=== PATIENT | male | born 1985 | race Asian ===

== ENCOUNTER 2020-03-03 15:46 | Outpatient (REF) | payer BC, SELFPAY | END 2020-03-03 15:47 | disposition home or self-care (01) | LOC: HO.LAB 15:46 | PROVIDERS: PCP Internal Medicine; Visit Provider Internal Medicine | DX: Z20.828 Contact with and (suspected) exposure to other viral communicable diseases (principal) | CPT/HCPCS: C9803; U0003 ==

== ENCOUNTER 2020-08-24 18:30 | Outpatient (REF) | payer BC, SELFPAY | END 2020-08-24 18:31 | disposition home or self-care (01) | LOC: HO.LNP 18:30 | PROVIDERS: Visit Provider Family Medicine | DX: B34.9 Viral infection, unspecified (principal); Z20.822 Contact with and (suspected) exposure to COVID-19 | CPT/HCPCS: U0003; U0005 ==

== ENCOUNTER 2021-04-27 11:26 | Outpatient (REF) | payer BC, SELFPAY ==
[2021-05-05 09:36] LABS: Influenza A RNA Ref NOT DETECTED; Influenza B RNA Ref NOT DETECTED
[2021-05-05 10:00] LABS: SARS CoV2 RNA Ref DETECTED
== END 2021-04-27 11:27 | disposition home or self-care (01) ==
LOC: HO.LAB 11:26
PROVIDERS: Visit Provider Hospitalist
DX: Z20.822 Contact with and (suspected) exposure to COVID-19 (principal)
CPT/HCPCS: 0241U; 36415

== ENCOUNTER → 2021-10-18 09:11 | Outpatient (BNVA) | payer OTHER, SELFPAY | PROVIDERS: PCP Internal Medicine; Visit Provider Physician Assistant Medical | DX: S29.012A Strain of muscle and tendon of back wall of thorax, initial encounter (principal); S39.012A Strain of muscle, fascia and tendon of lower back, initial encounter; W03.XXXA Other fall on same level due to collision with another person, initial encounter | CPT/HCPCS: 99203 ==

== ENCOUNTER → 2021-10-27 11:47 | Outpatient (BNVA) | payer OTHER, SELFPAY | PROVIDERS: PCP Internal Medicine; Visit Provider Physician Assistant | DX: S29.012D Strain of muscle and tendon of back wall of thorax, subsequent encounter (principal); S39.012D Strain of muscle, fascia and tendon of lower back, subsequent encounter; W03.XXXD Other fall on same level due to collision with another person, subsequent encounter; M25.561 Pain in right knee | CPT/HCPCS: 72100; 99214 ==

== ENCOUNTER 2021-11-07 13:32 | Outpatient (REF) | payer OTHER, SELFPAY ==
--- NOTE | ~2021-11-07 | XR_ITS ---
EXAMINATION: XR ORBIT PRE-MRI SCREENING CLINICAL INFORMATION: Pre-MRI screening. COMPARISON: None TECHNIQUE: 3 views of the orbits were obtained. FINDINGS: No radiopaque, metallic foreign body. No acute osseous abnormality. XR/XR pre mri screening IMPRESSION: No metallic foreign body.
--- NOTE | ~2021-11-07 | MR_ITS ---
EXAMINATION: MR LUMBAR SPINE WITHOUT CONTRAST CLINICAL INFORMATION: Low back pain. Twisting injury. COMPARISON: Lumbar spine radiograph 10/27/2021. TECHNIQUE: MRI of the lumbar spine was obtained using routine sequences without contrast. FINDINGS: There is nonspecific straightening of the lumbar lordosis. Alignment is otherwise normal. Vertebral heights are preserved. There are small chronic Schmorl's nodes involving the upper and lower endplates at multiple consecutive levels at the thoracolumbar junction. There is slight loss of intervertebral disc height and T2 signal intensity at L5-S1 related to disc degeneration. The tip of the conus medullaris is located at L1-L2. No mass effect on the conus. Visualized distal cord signal intensity is normal. At L1-L2 there is a slightly bulging disc. No canal stenosis. No mass effect on the traversing or foraminal nerve roots. At L2-L3 there is a slightly bulging disc. No canal stenosis. No mass effect on the traversing or foraminal nerve roots. At L3-L4 there is a slightly bulging disc. Bilateral facet degenerative change. No canal stenosis. No mass effect on the traversing or foraminal nerve roots. At L4-L5 there is a slightly bulging disc. Bilateral facet degenerative change. No canal stenosis. No mass effect on the traversing or foraminal nerve roots. At L5-S1 there is a broad shallow central protrusion/extrusion causing indentation of the thecal sac. There is subtle displacement of both traversing S1 nerve roots. No foraminal nerve root compression. Limited visualization of the retroperitoneal anatomy reveals no abnormal finding. Psoas and paraspinal muscle groups are symmetric. MR/MR lumbar spine wo con IMPRESSION: There is a broad shallow central protrusion/extrusion at L5-S1 causing subtle displacement of both traversing S1 nerve roots. No mass effect on the traversing or foraminal nerve roots is visualized elsewhere within the [id number] of this examination. No canal stenosis.
== END 2021-11-07 13:33 | disposition home or self-care (01) ==
LOC: HO.MRI 13:32
PROVIDERS: Visit Provider Internal Medicine
DX: M54.50 Low back pain, unspecified (principal)
CPT/HCPCS: 72148

== ENCOUNTER → 2021-11-10 11:24 | Outpatient (BNVA) | payer OTHER, SELFPAY | PROVIDERS: PCP Internal Medicine; Visit Provider Physician Assistant | DX: S29.012D Strain of muscle and tendon of back wall of thorax, subsequent encounter (principal); S39.012D Strain of muscle, fascia and tendon of lower back, subsequent encounter; W03.XXXD Other fall on same level due to collision with another person, subsequent encounter | CPT/HCPCS: 99214 ==

== ENCOUNTER → 2021-11-23 11:09 | Outpatient (BNVA) | payer OTHER, SELFPAY | PROVIDERS: PCP Internal Medicine; Visit Provider Physician Assistant | DX: S29.012D Strain of muscle and tendon of back wall of thorax, subsequent encounter (principal); S39.012D Strain of muscle, fascia and tendon of lower back, subsequent encounter; W03.XXXD Other fall on same level due to collision with another person, subsequent encounter | CPT/HCPCS: 99213 ==

== ENCOUNTER → 2021-12-08 10:15 | Outpatient (BNVA) | payer OTHER, SELFPAY | PROVIDERS: PCP Internal Medicine; Visit Provider Physician Assistant | DX: M51.26 Other intervertebral disc displacement, lumbar region (principal); S29.012D Strain of muscle and tendon of back wall of thorax, subsequent encounter; S39.012D Strain of muscle, fascia and tendon of lower back, subsequent encounter; W03.XXXD Other fall on same level due to collision with another person, subsequent encounter | CPT/HCPCS: 99213 ==

== ENCOUNTER 2021-12-22 11:00 | Outpatient (RCR) | payer OTHER, SELFPAY ==
--- NOTE | 2021-10-30 12:05 | MHC.PT.EP ---
[facility] [place] Office [place] Office [place] Office [address] Tashia Souza [address] [phone] F: [phone] F: [phone] F: [phone] F: [phone] Physical Therapy Plan of Care Date of Evaluation: Date of Surgery: N/A Diagnosis: Thoracic and Lumbar Strain Assessment: Steffen is a 36 yo M referred to PT for thoracic and lumbar strain pain. Pain is intermittent in nature and comes on with sustained posture and movement. 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 His pain is mechanical in nature and comes on with sustained posture and movement. Upon exam he presents with slightly decreased gross hip and shoulder strength along with decreased abdominal strength, altered neuromuscular control of TrA and noted tissue tension. Steffen will benefit from skilled PT to address the aforementioned impairments and receive education on functional movements and body mechanics. Frequency and Duration: The patient will be seen 2/ week for 5 weeks Short Term Goals: Patient will demonstrate good TrA activation (without compensation) to increase stabilization throughout the day in 2 weeks. Patient will report 50% decrease in pain which will allow him to sleep without waking up during the night in 3 weeks. Plum Packer Goals: Patient will be I with HEP to encourage technician terminal and repeater pain management strategies and maintain level of function in 5 weeks. Patient will be able to stand for extended periods of time to allow him to return to work without pain. Patient will demonstrate an increase in muscle strength of lumbar stabs by 1 grade which will enable him to return to his hobbies without pain in 5 weeks. Treatment Plan: Modalities to reduce pain, spasms and effusion. Manual therapy to restore motion and function. Therapeutic exercise to improve strength and flexibility. Neuromuscular re-education for posture and balance. Therapeutic activities to return to functional activities of daily living. Electronically signed by: Shelia Cuevas PT DPT Please sign and return to therapist. Thank you for your referral.
--- NOTE | 2021-12-22 11:57 | MHC.PT.DC ---
[facility] [place] Office [place] Office [place] Office [address] Tashia Souza [address] [phone] F: [phone] F: [phone] F: [phone] F: [phone] Physical Therapy Discharge Report Diagnosis: Thoracic and Lumbar Strain Date of Surgery: DOI October 14 Date of Evaluation: 10/30/21 Date of Discharge: 12/22/21 Treatments to Date: 12 Cancellations to Date: 0 No Shows to Date: 0 Discharge Status: Improved Function Independent with HEP Discharge Summary: Steffen arrived stating that his symptoms have not changed much since eval. He has days with no pain and then days with lots of pain. At this time he has completed 12 PT visits and feels only 40% better. His upper back symptoms are less but his low back pain appears to remain unchanged. Due to this lack of significant improvement he is being d/c from PT and recommended to follow up with physician. All HEP for lumbar stabs reviewed with is and he is independent with them. Steffen was in agreement with the plan. Electronically signed by: Shelia Cuevas, PT DPT Please sign and return to therapist. Thank you for your referral.
== END 2021-12-22 11:57 | disposition home or self-care (01) ==
LOC: HO.PT 11:00
PROVIDERS: PCP Internal Medicine; Visit Provider Physician Assistant
DX: S39.012D Strain of muscle, fascia and tendon of lower back, subsequent encounter (principal); S29.012D Strain of muscle and tendon of back wall of thorax, subsequent encounter
CPT/HCPCS: 97110; 97112; 97140; 97161

== ENCOUNTER 2023-03-13 23:56 | Emergency (ER) | payer BC, SELFPAY ==
--- NOTE | ~2023-03-13 | XR_ITS ---
EXAMINATION: XR HAND, RIGHT CLINICAL INFORMATION: Laceration fifth metacarpal, question foreign body COMPARISON: None available. TECHNIQUE: PA, lateral, and oblique views of the right hand. FINDINGS: Osseous alignment is anatomic. No acute fracture is seen. Soft tissue defect is present at the proximal aspect of the fifth digit. No radiopaque foreign body is seen. XR/XR hand RT 2V IMPRESSION: Soft tissue defect at the proximal fifth digit. No radiopaque foreign body.
[2023-03-14 00:02] VITALS: BP 128/75; PULSE 77; RESP 18; TEMP 36.4; O2SAT 93; BMI 32.3
--- NOTE | 2023-03-14 00:11 | ED_ITS ---
HPI - Wound/Laceration General Chief Complaint: Wound/Laceration Stated Complaint: lac on finger Time Seen by Provider: 03/14/23 00:03 Source: patient Mode of arrival: ambulatory Limitations: no limitations History of Present Illness HPI narrative: Patient is a 37-year-old male who presents emergency department for evaluation of a laceration to the radial aspect of the 5th digit right hand partially overlying the MCP. Sustained laceration from shattered glass prior to arrival. Reports last tetanus vaccination was less than 5 years ago. No active bleeding. Denies use of anticoagulants or coagulation disorders. Denies numbness or tingling. Has full range of motion to the hand/fingers. Related Data Home Medications Medication Instructions Recorded Confirmed No Known Home Meds 04/27/21 04/27/21 Allergies Allergy/AdvReac Type Severity Reaction Status Date / Time No Known Allergies Allergy Verified 03/14/23 00:05 Review of Systems Review of Systems: Yes all other systems are reviewed and are negative PMFSH Past Medical History Attestation statement: The following information was validated with the patient. Source: old records reviewed Social History Smoked in Last 30 Days: No Use of substances other than those prescribed or required for medical reasons: No Advance Directives: No Advance Directives Information Provided: No Physical Exam Vital Signs: Vital Signs: Last Vital Signs Temp 97.6 F 03/14/23 00:02 Pulse 77 03/14/23 00:02 Resp 18 03/14/23 00:02 BP 128/75 03/14/23 00:02 Pulse Ox 93 03/14/23 00:02 O2 Del Method Room Air 03/14/23 00:02 BMI result Body Mass Index 32.3 Appearance: Alert.?Oriented to person, place and time. No acute distress.?Normal affect. Neck: Normal inspection.? Neck supple.?? CVS: Heart sounds normal. Normal heart rate and rhythm.? Pulses normal.?? Respiratory: No respiratory distress.? Lung sounds clear to auscultation bilaterally? Skin: Skin warm and dry.? Normal skin color.? Right 5th digit radial aspect with 0.5 cm linear laceration involving subcutaneous tissue, overlying MCP/interdigital space with no active bleeding Extremities: No extremity edema.? Full AROM to the digits/and Neuro: Moves all extremities spontaneously. Sensation intact bilaterally. Ambulates with normal steady gait. Medications Administered Discontinued Medications Generic Name Dose Route Start Last Admin Trade Name Cathy PRN Reason Stop Dose Admin Lidocaine HCl 5 ml 03/14/23 00:03 03/14/23 00:37 Lidocaine Hcl 1 % Mpf 5 Ml Vial SUBCUT 03/14/23 00:04 5 ml ONCE ONE Administration Medical Decision Making Medical Decision Making [facility] Narrative: Patient is a 37-year-old male presents emergency department for evaluation of a laceration to the right hand as per HPI physical examination section of this note. Overall well-appearing. Full AROM to content, does not appear consistent with acute tendon/ligamentous injury. Low suspicion for osseous involvement, XR imaging was obtained to exclude retained foreign body given shattered glass, XR reveals no retained foreign body. Wound was cleansed with saline and Betadine, laceration closure with sutures as per procedure section of this note. Tolerated procedure well. Reviewed worrisome signs of symptoms that would warrant re-evaluation, signs of infection, outpatient follow-up as needed and return date for suture removal. All questions answered. Stable for discharge. Differential Diagnosis Differential Diagnoses: The differential diagnosis associated with the presentation includes (As noted above) Independent Interpretation I performed an independent interpretation of an: Plain X-Ray (I personally interpreted XR imaging and agree with radiologist impression) Radiology Impression Discussion of test interpretation with radiology: I have reviewed the radiologist's reading. Radiologist Impression: XR/XR hand RT 2V IMPRESSION: Soft tissue defect at the proximal fifth digit. No radiopaque foreign body. Independent Historian Clinical information obtained from an independent historian. History obtained from or confirmed by: Spouse (Present who confirms history) Prescription Management I considered prescription management with: Pain Medication (Acetaminophen/ibuprofen) Procedures Laceration Laceration 1: Site: hand Side (If applicable): right Size (cm): 0.5 Description: linear Depth: simple, single layer Local Anesthetic: lidocaine 1% Amount of anesthesia used (mL): 2 Pre-repair: wound explored, irrigated extensively and deep structures intact Skin layer closed with: nylon Size (cm): 4-0 Number of sutures: 2 Technique: simple, interrupted Discharge Plan Discharge Clinical Impression: Laceration Patient Disposition: Home, Self-Care Additional Instructions: Sutures will need to be removed in 10-14 days. If you develop worsening pain, redness, swelling, pus-like discharge, fevers, chills, inability to move the hand/finger than this needs to be re-evaluated. Prescriptions: No Action No Known Home Meds Referrals: Armand Crenshaw MD [Primary Care Provider] - Interventions: ED Discharge Assessment Last Done: 03/14/23 01:04 Discharge Date/Time: 03/14/23 01:04
[2023-03-14] MEDS: Lidocaine HCl 1 % MPF 5 ML VIAL SUBCUT (00:37)
--- NOTE | 2023-03-14 00:44 | PC.NURSE ---
MLP at bedside suturing right hand/5th digit. Pt tolerating well.
== END 2023-03-14 01:04 | disposition home or self-care (01) ==
PROVIDERS: Emergency Provider Emergency Medicine; PCP Internal Medicine
DX: S61.411A Laceration without foreign body of right hand, initial encounter (principal); W25.XXXA Contact with sharp glass, initial encounter; Y93.9 Activity, unspecified; Y92.9 Unspecified place or not applicable; Y99.9 Unspecified external cause status
CPT/HCPCS: 12001; 73120; 99284

== ENCOUNTER 2023-08-06 09:57 | Emergency (ER) | payer BC, SELFPAY ==
--- NOTE | ~2023-08-06 | XR_ITS ---
EXAMINATION: XR FINGER, RIGHT CLINICAL INFORMATION: Swelling. Pain COMPARISON: 03/14/2023 TECHNIQUE: 3 views of the right fifth digit. FINDINGS: No radiopaque foreign body, fracture, dislocation or destructive process. XR/XR finger RT min 2V IMPRESSION: Negative
--- NOTE | ~2023-08-06 | CT_ITS ---
EXAMINATION: CT HAND WITHOUT CONTRAST, RIGHT CLINICAL INFORMATION: Proximal fifth digit swelling. Rule out retained foreign body. COMPARISON: Radiograph dated 08/06/2023 TECHNIQUE: Multidetector volumetric imaging was obtained through the right hand without contrast material. Multiplanar reformatted images in coronal and sagittal orientations were submitted. This CT examination was performed using dose optimization techniques as appropriate, variously including the following: *Automated exposure control *Adjustment of mA and/or kV according to patient size (this includes techniques or standardized protocols for targeted exams where dose is matched to indication/reason for exam; i.e. extremities or head) *Use of iterative reconstruction technique DLP: 111 mGy-cm FINDINGS: There is focal soft tissue swelling in thelateral (radial) soft tissues at the level of the proximal phalanx. A ill-defined 1.6 x 0.8 x 2.4 cm focus of soft tissue attenuation in the subcutaneous fat in this region may correspond to marked focal soft tissue edema, though hematoma or nodule are also possible. No appreciable foreign bodies. Underlying bone is normal in appearance. No fracture or malalignment. MCP and interphalangeal joints appear well-preserved. No osseous lesions. Tendons are intact. No appreciable tears or tenosynovitis. Intrinsic hand musculature is unremarkable. CT/CT hand RT wo IV con IMPRESSION: No appreciable radiodense foreign bodies in the region of soft tissue swelling at the small finger. Focal soft tissue attenuation lateral (radial) subcutaneous fat at the level of the proximal phalanx may correspond to intense focal soft tissue edema, though hematoma or nodule are also possible. No subcutaneous gas.
[2023-08-06 10:29] VITALS: BP 136/86; PULSE 71; RESP 16; TEMP 36.9; O2SAT 98; BMI 33.7
--- NOTE | 2023-08-06 11:52 | ED_ITS ---
HPI - Extremity Problem General Chief complaint: Extremity Injury, Upper Stated complaint: ? Infection Pinky L Hand Time Seen by Provider: 08/06/23 11:28 Source: patient Mode of arrival: ambulatory Limitations: no limitations History of Present Illness HPI Narrative: 38-year-old right hand dominant male with no significant pmhx presents to the ED today for evaluation of right pinky pain/swelling x1 week. He was evaluated in ED in February of 2023 (6 months ago) for laceration sustained to his right pinky after cutting it on glass. 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 He reports appropriate healing up until 1 week ago. He began noticing redness, swelling and pain to the old laceration site. He was evaluated for this at [facility] last week with unremarkable hand radiographs and discharged on bactrim for suspected infection. He has been taking this for 6 days without improvement. Endorses worsening swelling/ pain to the base of his right pinky despite treatment. States he has FROM to digit. Denies new trauma or injury. Denies fevers, chill, N/V, drainage from the area. Related Data Home Medications ?Medication ?Instructions ?Recorded ?Confirmed No Known Home Meds 04/27/21 04/27/21 Allergies Allergy/AdvReac Type Severity Reaction Status Date / Time No Known Allergies Allergy Verified 08/06/23 10:31 Review of Systems Review of Systems: Constitutional: No fever, chills, fatigue, night sweats, weight changes ENT/Mouth: No ear pain, hearing loss, nasal congestion, sinus pain, rhinorrhea, sore throat Eyes: No eye pain, swelling, redness, vision changes, discharge Cardio: No chest pain, palpitations, FLORES, orthopnea, peripheral edema Pulm: No SOB, cough, sputum, wheezing, dyspnea, hemoptysis GI: No nausea, vomiting, hematemesis, abdominal pain, diarrhea, constipation, hematochezia, melena : No irregular bleeding, dysuria, frequency, urgency, hesitancy, hematuria, flank pain, urinary flow changes, urinary incontinence or retention MSK: No back pain, neck pain, joint pain, myalgias Skin: No lesions, rashes, +swelling/ erythema to right 5th digit Neuro: No weakness, numbness, paresthesias, LOC, dizziness, headache Psych: No anxiety/panic, depression, SI/HI, AH/VH All other systems reviewed and are negative. [facility], [facility] Past Medical History Attestation statement: The following information was validated with the patient. Source: old records reviewed and nursing notes reviewed Physical Exam Vital Signs: Vital Signs: Last Vital Signs Temp 98.5 F 08/06/23 14:13 Pulse 71 08/06/23 14:13 Resp 16 08/06/23 14:13 BP 136/86 08/06/23 14:13 Pulse Ox 98 08/06/23 14:13 O2 Del Method Room Air 08/06/23 14:13 BMI result Body Mass Index 33.7 Vital signs stable, afebrile. Const: General: cooperative, healthy appearing, comfortable and no acute distress Orientation/consciousness: patient oriented x3 Limitations: no limitations HEENT: Head: Yes normal to inspection, Yes No palpable skull fracture present, Yes normocephalic and Yes atraumatic Eyes: General: appearance normal, both eyes and all related structures Conjunctivae: conjunctivae normal Sclerae: sclerae normal Pupils: Equal, round and reactive pupils present Neck: Neck: Yes normal visual inspection, Yes full ROM and Yes no lymphadenopathy Resp: Effort & Inspection: normal respiratory effort and able to speak in complete sentences Auscultation: clear to auscultation bilaterally Cardio: Rate: regular rate Rhythm: regular rhythm GI: Inspection: Yes normal to inspection Skin: Other: + refer to photos below Neuro: General: patient oriented x3 and gait normal Cranial nerves: Yes Equal, round and reactive pupils present Extrem: Other: + soft tissue swelling and erythema note d to the radial aspect of the proximal digit on the right hand. TTP. No palpable fluctuance. Warm to the touch. No streaking. Full ROM to right 5th digit and wrist intact. Strength and sensation intact Course Reevaluation(s) Reevaluation #1: Finger is infected, I suspect a FB likely glass will discuss with Dr. Silva and obtain CT of hand Time: 12:09 Reevaluation #2: 4115-- discussed case with Dr. Silva (hand surgeon). Recommends further imaging to assess for retained foreign body. CT of the right hand obtained which shows no appreciable radiodense foreign body in the region of soft tissue swelling at the base of the 5th digit. There is focal soft tissue attenuation lateral subcutaneous fat at the level of the proximal phalanx which may correspond to intense focal soft tissue edema, though hematoma or nodule are also possible. There is no evidence of subcutaneous gas. > case discussed with my attending physician, Dr. Benson, who has also evaluated the patient. Both Dr. Benson and I performed an independent interpretation of CT scan and do not appreciate foreign body. Will give 1 dose of doxy and Keflex in the ED today for finger infection. Dr. Silva is requesting patient continue Bactrim outpatient. She states that she will see him in her office tomorrow morning for further management. > discussed all results with patient. He is agreeable with plan. Patient has remained stable throughout ED visit today. Discussed worrisome signs and symptoms and when to return to the ED. All questions answered at this time. Patient is agreeable with disposition and stable for discharge. Medications Administered Discontinued Medications Generic Name Dose Route Start Last Admin Trade Name Freq PRN Reason Stop Dose Admin Cephalexin HCl 500 mg 08/06/23 13:52 08/06/23 14:08 Cephalexin 500 Mg Capsule PO 08/06/23 13:53 500 mg ONCE ONE Administration Doxycycline Monohydrate 100 mg 08/06/23 13:52 08/06/23 14:08 Doxycycline Monohydrate 100 Mg Capsule PO 08/06/23 13:53 100 mg ONCE ONE Administration Medical Decision Making Medical Decision Making MDM Narrative: 38-year-old right hand dominant male with no significant pmhx presents to the ED today for evaluation of right pinky pain/swelling x1 week. Vital signs stable. Afebrile. He is well appearing and in NAD. On exam, there is soft shoe swelling and erythema noted to the radial aspect of the proximal digit on the right hand. TTP. No palpable fluctuance. Warm to the touch. No streaking. Full ROM to right 5th digit and wrist intact. Strength and sensation intact. No rashes. Differential diagnosis includes scar tissue, retained foreign body, cellulitis, abscess. Lower suspicion for gout, pseudogout, osteomyelitis, fracture, subluxation, neurovascular compromise, compartment syndrome, threat to limb. Plan for imaging and re-evaluation. Differential Diagnosis Differential Diagnoses: The differential diagnosis associated with the presentation includes As above Admission/Observation Not indicated Consult Healthcare Provider Management of the patient was discussed with: Ladle Cleaner (Dr. Silva (hand surgeon)) Independent Interpretation I performed an independent interpretation of an: Plain X-Ray and CT Scan Interpretation: I personally reviewed x-ray of right hand taken on 03/14/2023 and do not appreciate foreign body, agree with radiologist's interpretation. X-ray right hand without evidence of FB, agree with radiologist's interpretat ion. CT right hand does not demonstrate FB, agree with radiologist's interpretation. Radiology Impression Discussion of test interpretation with radiology: I have reviewed the radiologist's reading. Radiologist Impression: EXAMINATION: XR FINGER, RIGHT CLINICAL INFORMATION: Swelling. Pain COMPARISON: 03/14/2023 TECHNIQUE: 3 views of the right fifth digit. FINDINGS: No radiopaque foreign body, fracture, dislocation or destructive process. XR/XR finger RT min 2V IMPRESSION: Negative EXAMINATION: CT HAND WITHOUT CONTRAST, RIGHT CLINICAL INFORMATION: Proximal fifth digit swelling. Rule out retained foreign body. COMPARISON: Radiograph dated 08/06/2023 TECHNIQUE: Multidetector volumetric imaging was obtained through the right hand without contrast material. Multiplanar reformatted images in coronal and sagittal orientations were submitted. This CT examination was performed using dose optimization techniques as appropriate, variously including the following: *Automated exposure control *Adjustment of mA and/or kV according to patient size (this includes techniques or standardized protocols for targeted exams where dose is matched to indication/reason for exam; i.e. extremities or head) *Use of iterative reconstruction technique DLP: 111 mGy-cm FINDINGS: There is focal soft tissue swelling in thelateral (radial) soft tissues at the level of the proximal phalanx. A ill-defined 1.6 x 0.8 x 2.4 cm focus of soft tissue attenuation in the subcutaneous fat in this region may correspond to marked focal soft tissue edema, though hematoma or nodule are also possible. No appreciable foreign bodies. Underlying bone is normal in appearance. No fracture or malalignment. MCP and interphalangeal joints appear well-preserved. No osseous lesions. Tendons are intact. No appreciable tears or tenosynovitis. Intrinsic hand musculature is unremarkable. CT/CT hand RT wo IV con IMPRESSION: No appreciable radiodense foreign bodies in the region of soft tissue swelling at the small finger. Focal soft tissue attenuation lateral (radial) subcutaneous fat at the level of the proximal phalanx may correspond to intense focal soft tissue edema, though hematoma or nodule are also possible. No subcutaneous gas. EXAMINATION: XR HAND, RIGHT CLINICAL INFORMATION: Laceration fifth metacarpal, question foreign body COMPARISON: None available. TECHNIQUE: PA, lateral, and oblique views of the right hand. FINDINGS: Osseous alignment is anatomic. No acute fracture is seen. Soft tissue defect is present at the proximal aspect of the fifth digit. No radiopaque foreign body is seen. XR/XR hand RT 2V IMPRESSION: Soft tissue defect at the proximal fifth digit. No radiopaque foreign body. External Record Review External record reviewed: Inpatient record Prescription Management I considered prescription management with: Pain Medication and Antibiotic Social Determinants Patient?s care significantly limited by Social Determinants of Health including: Other Social Determinant of Health Critical Care Time Critical Care Time Critical Care Time: Yes Total Critical Care Time: 46 Attestation: Critical care time in the amount of 46 minutes has been provided to the patient in terms of direct patient care, frequent reevaluation, consultation with ortho, review and interpretation of medical data and results, and management of potentially life-threatening conditions. This is all outside of any medical procedures. Discharge Plan Discharge Clinical Impression: Cellulitis of finger of right hand Patient Disposition: Home, Self-Care Instructions: Cellulitis (ED) Additional Instructions: The x-ray of your right pinky does not demonstrate foreign body. The CT scan of your right pinky does not demonstrate foreign body however does show significant soft tissue swelling. You were given a dose of doxycycline and Keflex in the ED today. Your case was discussed with our hand surgeon, Dr. Silva, who would like you to continue Bactrim outpatient. Dr. Silva would like to see you in her office tomorrow morning for follow- up/further management. You have been provided with the phone number to her office. Call them today to make an appointment. They will not call you. You may take Tylenol and ibuprofen at home as needed for pain. Please return with new or worsening symptoms. In the case of an emergency call 911. Dr. Silva (hand surgeon): [phone] Prescriptions: No Action No Known Home Meds Referrals: Cherelle Silva MD [Physician] - (CT hand RT wo IV con IMPRESSION: No appreciable radiodense foreign bodies in the region of soft tissue swelling at the small finger. Focal soft tissue attenuation lateral (radial) subcutaneous fat at the level of the proximal phalanx may correspond to intense focal soft tissue edema, though hematoma or nodule are also possible. No subcutaneous gas.) Interventions: ED Discharge Assessment Last Done: 08/06/23 14:13 Discharge Date/Time: 08/06/23 14:14 Print Language: Turkmen
[2023-08-06] MEDS: cephALEXin 500 MG CAPSULE PO (14:08)
[2023-08-06] MEDS: Doxycycline Monohydrate 100 MG CAPSULE PO (14:08)
[2023-08-06 14:13] VITALS: BP 136/86; PULSE 71; RESP 16; TEMP 36.9; O2SAT 98
== END 2023-08-06 14:14 | disposition home or self-care (01) ==
PROVIDERS: Emergency Provider Emergency Medicine; PCP Internal Medicine
DX: L03.113 Cellulitis of right upper limb (principal)
CPT/HCPCS: 73140; 73200; 99282; 99284

== ENCOUNTER 2023-08-07 11:07 | Outpatient (AMB) | payer BC, SELFPAY ==
--- NOTE | 2023-08-07 11:25 | A.OFFVIS_ITS ---
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 States he has severe swelling in his pinky since 07/24/23. States he has a small cut that needed stitches on 03/13/24. States [id number] were removed and about 3 months later he begin to have increase swelling and pain. He is able to make a full fist however its a painful and has trouble grasping item. He is having numbness across his MCPs. 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 He says he cut the base of his small finger on 03/13/23, on a piece of glass. He says this was sutured closed following the injury, which he removed himself. By all accounts it went on to heal well. He was seen in the ED on 08/06/23 complaining of pain & swelling at the base of his small finger since 07/24/23. He says he was seen at [place] on 07/30/23 and given a course of Bactrim, which has not really helped him. He says he has been on Abx since 07/30 and should be finished sometime tomorrow on 08/08/23. He says his pain began following a workout at the gym, but he says he does this 3X weekly and had no issues prior to this. He denies any known injury or falls Again he has been taking Bactrim since about 07/31/2023. He continues to have mild pain and the same swelling. He says he leaves for [place] tomorrow and returns on Saturday. 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 Review of Systems Const All systems reviewed & are unremarkable except as noted in HPI and below Physical Exam Vital Signs: BMI result Body Mass Index 33.6 Const General: cooperative, healthy appearing and no acute distress Orientation/consciousness: patient oriented x3 HEENT Head: Yes normocephalic and Yes atraumatic Eyes EOM: EOMs intact bilaterally Resp Effort & Inspection: normal respiratory effort and able to speak in complete sentences Cardio Jugular venous distension: no JVD Skin General skin exam: turgor normal Rashes: no rashes Neuro General: patient oriented x3 Extrem Other: Evaluation of Right Upper Extremity: The patient is alert, oriented, and in no acute distress Neuro: Median, Ulnar, Radial nerves motor and sensory intact and sensation is normal to the tips of all digits Vascular: Cap refill brisk ROM: He can make a fist and extend all his digits Can ABduct & ADduct his small finger Skin: No lacerations or abrasions. General: No Ecchymosis. Swelling & erythema involving the radial aspect of the small finger, at the proximal phalanx level, extending from the dorsal central aspect to the volar radial aspect of the proximal phalanx No open wounds Mildly tender Swollen but still soft Radiographs: CT/CT hand RT wo IV con IMPRESSION: No appreciable radiodense foreign bodies in the region of soft tissue swelling at the small finger. Focal soft tissue attenuation lateral (radial) subcutaneous fat at the level of the proximal phalanx may correspond to intense focal soft tissue edema, though hematoma or nodule are also possible. No subcutaneous gas. Dictated By: Tino Parker MD 08/06/23 Psych Appearance: grossly normal Affect: normal affect Attitude: cooperative Assessment & Plan Assessment & Plan (1) Abscess of right little finger: Code(s): L02.511 - Cutaneous abscess of right hand Plan Assessment & Plan: 1. Right small finger cellulitis and possible abscess, not resolving on Bactrim I educated him about this condition I discussed operative and non-operative treatment options The patient would like to proceed with surgery He will finish his current Abx as instructed I ordered a 3-day extension of his Bactrim, which he will remain off until after his DOS, unless he develops worsening erythema or pain in the next few days. The risks and benefits of operative treatment were discussed with the patient and the patient wishes to proceed with surgery. These risks include, but are not limited to risk of damage to blood vessels, nerves, tendons, infection, recurrence, incomplete relief of preoperative symptoms, persistent pain, possible need for further surgery and the risks associated with regional blocks and anesthesia. The plan is to take the patient to the operating room sometime on 08/12/23 for the following procedures: 1. Right small finger I&D, under local All of the preoperative paperwork including the consent was reviewed today. All the patient's questions were answered. The patient understands that they will be contacted by our surgery aide soon to schedule this procedure He denies Diabetes, blood thinners, asthma, heart, lung, kidney issues Scribed for Cherelle Silva MD by Fabien Willams, biomedical engineering professor, on 08/07/23 at 11:50 AM, EST. Medications: New sulfamethoxazole-trimethoprim 800-160 mg (Bactrim DS) 1 tab PO BID 3 days 6 tabs 0RF Coding Level of Care Code New Pt Level 4 (87039) Diagnoses Abscess of right little finger L02.511
[2023-08-07 11:26] VITALS: BMI 33.6
== END 2023-08-07 12:03 | disposition home or self-care (01) ==
PROVIDERS: PCP Internal Medicine; Visit Provider Orthopaedic Surgery
DX: L02.511 Cutaneous abscess of right hand (principal)
CPT/HCPCS: 99204

== ENCOUNTER → 2023-08-07 11:07 | Outpatient (BNVA) | payer BC, SELFPAY | PROVIDERS: PCP Internal Medicine; Visit Provider Orthopaedic Surgery ==

== ENCOUNTER 2023-08-12 11:43 | Day surgery (SDC) | payer BC, SELFPAY ==
[2023-08-12 12:13] VITALS: BP 130/88; PULSE 83; RESP 18; TEMP 36.9; O2SAT 98; BMI 33.4
--- NOTE | 2023-08-12 13:53 | MHC.SHP ---
Pre-Procedural Eval Section A - 24 Hr Update-Section A only Date of Service: 08/12/23 The patient is an INPATIENT: No Changes since office visit: No Cold of Flu in the past 2 weeks, No New Medical Problems, No Changes in Medication and No Patient answered all questions The patient has been examined within 24 hours of the surgical procedure. The History & Physical has been completed within 30 days and I have reviewed it.: Yes Section B - Complete if H&P > 30 days Chief Complaint: Cutaneous abscess of right hand Allergies: Allergies Allergy/AdvReac Type Severity Reaction Status Date / Time No Known Allergies Allergy Verified 08/07/23 11:30 Plan I have reviewed the history and physical and performed a pertinent physical examination on my patient. No changes have occurred unless specified. Time Spent With Patient Time: Total time managing care of this patient today ____ minutes.
--- NOTE | 2023-08-12 13:54 | W.PM.OPN ---
Operative Note Operative Note Date of Service: 08/12/23 Narrative: Operative Note Preop diagnosis: 1. Right small finger abscess Postop diagnosis: same Procedure: 1. Right small finger I and D Surgeon: Cherelle Silva MD Anesthesia: digital block using 1% lidocaine with epinephrine Findings: Edema of the subcutaneous tissues in the dorsal radial aspect of the small finger proximal phalanx. A small amount of creamy purulence was found, but more edema than obvious abscess cavity. EBL: Less than 5 mL Tourniquet time: None Specimens: Cultures x2 sent of fluid from the right small finger dorsal proximal abscess/area of swelling Complications: None Disposition: Brought to recovery room in stable condition Plan: Follow-up in 2 days for wound check and suture removal and to check cultures Change antibiotics to Augmentin and begin today. Patient had been on Bactrim. Indications: The patient is 38 years old, with a focal area of swelling and redness in the area of the dorsal radial aspect of the right small finger proximal phalanx. . The risks and benefits of operative treatment including but not limited to risk of damage to blood vessels, nerves, tendons, infection, persistent pain, persistent symptoms, recurrence or possible need for additional surgery were discussed with the patient and the patient wishes to proceed with surgery. Procedure: Once consent was obtained a digital block was performed in the preop area using a combination of 1% lidocaine with epinephrine. The patient was then brought back to the operating suite and placed on the operative table in supine position. A tourniquet was applied to the proximal aspect of the right upper extremity and the limb was prepped and draped in a standard surgical fashion. The patient still had pain over the abscess area.? I performed an ulnar nerve block by infiltrating about the ulnar nerve at the wrist with some 1% lidocaine with epinephrine.? I then put in about 2 mL of 0.5% plain ropivacaine about the radial digital nerve of the small finger to augment the block I performed in preop hold.? This appeared to work well.?Once assured that we had a good block, I made a 2 cm longitudinal incision over the dorsal radial aspect of the right small finger proximal phalanx at the apex of the swelling. The incision was made through the skin to the subcutaneous tissues using a 15. Blade. I then dissected into the subcutaneous tissue using tenotomy scissors. The subcutaneous tissue was significantly edematous. There was a small amount of creamy yellow purulence, but again we found more edema than an obvious abscess cavity. I spread among the subcutaneous tissues on the dorsal and radial aspect of the proximal phalanx assuring there was no further abscess cavity. Cultures were taken of the bloody and purulent drainage x2. The wound was then copiously irrigated with normal saline. Hemostasis was obtained with a brief period of local pressure. The skin edges were loosely reapproximated with a single 4-0 Prolene stitch. And a sterile dressing was applied. The patient appears to have tolerated the procedure well and with no complications. All digits were well vascularized at the conclusion of the case.
--- NOTE | 2023-08-12 15:46 | HO.INF ---
S/P BP 151/81, P83, R 16,97% RA
== END 2023-08-12 15:44 | disposition home or self-care (01) ==
PROVIDERS: PCP Internal Medicine; Visit Provider Orthopaedic Surgery
PROC: (CPT 26010; principal; 2023-08-12 15:00)
DX: L02.511 Cutaneous abscess of right hand (principal); M79.644 Pain in right finger(s); M79.89 Other specified soft tissue disorders; R60.9 Edema, unspecified
CPT/HCPCS: 26010; 87070; 87205; J0171

== ENCOUNTER → 2023-08-12 11:43 | Outpatient (BNV) | payer BC, SELFPAY | PROVIDERS: PCP Internal Medicine; Visit Provider Orthopaedic Surgery | DX: L02.511 Cutaneous abscess of right hand (principal) | CPT/HCPCS: 26010 ==

== ENCOUNTER 2023-08-14 08:40 | Outpatient (AMB) | payer BC, SELFPAY ==
--- NOTE | 2023-08-14 08:44 | A.OFFVIS_ITS ---
Vital Signs 08/14/23 08:51 Height 5 ft 7 in Weight 213 lb BMI 33.4 Intake Visit Reasons: PO RT SF abscess 08/12/23 AR - Wound check per AR Intake Note: Steffen a 38 year old right hand dominant male who presents today for a post operative wound check of right hand small finger I&D on 08/12/23 AR. Allergies No Known Allergies Allergy (Verified 08/14/23 08:51) HPI HPI PO RT SF abscess 08/12/23 AR - Wound check per AR: Details: 38-year-old right hand dominant male who returns to the office today for post-op wound check of right small finger I&D, 08/12/[address] Silva. He states he has pain which is aggravated at night however he is doing well otherwise. He continues to take antibiotics as instructed. He has no other concerns today. 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 Sutures are intact. Incision is clean, dry and intact. He has diffuse swelling on the distal end of the digit. Sensation is intact. Results Reviewed Results Reviewed: Name: Steffen Khoury Age/Sex: 38/M : 1985 Unit#: [id number] Attend Dr: Cherelle Silva MD Re08/12/23 Status: [place] [facility] [place]: [facility] Disch: Specimen: [id number] Collected: 08/12/23 Status: RES Req#: [id number] Received: 08/12/23 Source: Fing Rt Li Sp Desc: Subm Dr: Cherelle Silva MD Ordered: Routine Cult GS Procedure Result Verified Gram stain Final 08/13/23 Gram stain results: 1+ polys 4+ red blood cells No organisms seen Routine Culture Preliminary 08/14/23 No growth to date. Assessment & Plan Assessment & Plan (1) Abscess of right little finger: Code(s): L02.511 - Cutaneous abscess of right hand Category: Medical Plan Dr. Silva was available to see the patient with me today. Patient will continue to take Bactrim twice a day and perform daily dry dressing changes. Over the weekend he can begin washing the wound with soap and water but he should avoid submerging his hand underwater for long periods of time. He will see me back next week for a wound check. Sutures will remain intact. He will see me back sooner if needed. Patient Instructions: Scribed for Evelyn Sheridan PA-C, by Aurelio Goyal director biomedical engineering, on 08/14/2023 at 8:30 AM EST. I, Evelyn Sheridan PA-C, have personally reviewed and agree with the information entered by the scribe. Coding Level of Care Code Global (99434) Diagnoses Abscess of right little finger L02.511
[2023-08-14 08:51] VITALS: BMI 33.4
== END 2023-08-14 09:10 | disposition home or self-care (01) ==
PROVIDERS: PCP Internal Medicine; Visit Provider Physician Assistant
DX: L02.511 Cutaneous abscess of right hand (principal)
CPT/HCPCS: 99024

== ENCOUNTER → 2023-08-14 08:40 | Outpatient (BNVA) | payer BC, SELFPAY | PROVIDERS: PCP Internal Medicine; Visit Provider Physician Assistant ==

== ENCOUNTER 2023-08-21 12:25 | Outpatient (AMB) | payer BC, SELFPAY ==
--- NOTE | 2023-08-21 12:33 | MHC.OFFVIS ---
Vital Signs 08/21/23 12:34 Height 5 ft 7 in Weight 213 lb BMI 33.4 Intake Visit Reasons: PO RT SF abscess 08/12/23 AR - Wound check Intake Note: Steffen is a 38 year old male, right hand dominant, who presents today for post-op right SF abscess 08/12/23 on right pinky finger. Patient reports pain, 2 on 0-10 pain scale. States it feels tight and there is yellowish discharge. Denies fevers, chills, vomiting. He has taken Ibuprofen as needed for pain. Antibiotic treatment completed. 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 Silva. He continues to have pain and rates the pain as 2 on the scale of 0-10. He also reports tightness and yellow discharge from the wound. He is taking ibuprofen as instructed. He is completed with antibiotics regimen. He is doing well otherwise and has no concerns today. 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 Sutures are intact. Incision is clean, dry and intact. He has diffuse swelling on the distal end of the digit. Sensation is intact. Assessment & Plan Assessment & Plan (1) Abscess of right little finger: Code(s): L02.511 - Cutaneous abscess of right hand Category: Medical Plan Sutures were removed today in the office. Dr. Silva was available to see the patient with me today. The plan today is to continue with daily dressing changes. He was given a prescription for Augmentin for another week. He will see me back next week for a wound check, sooner if needed. Medications: Changed From amoxicillin-pot clavulanate 875-125 mg 1 tab PO BID 14 tabs 0RF To amoxicillin-pot clavulanate 875-125 mg 1 tab PO BID 14 tabs 0RF 7 days Patient Instructions: Scribed for Evelyn Sheridan PA-C, by Aurelio Goyal medical staff credentialing coordinator, on 08/21/2023 at 12:30 PM EST. IEvelyn PA-C, have personally reviewed and agree with the information entered by the scribe. Coding Level of Care Code Global (73200) Diagnoses Abscess of right little finger L02.511
[2023-08-21 12:34] VITALS: BMI 33.4
== END 2023-08-21 13:08 | disposition home or self-care (01) ==
PROVIDERS: PCP Internal Medicine; Visit Provider Physician Assistant
DX: L02.511 Cutaneous abscess of right hand (principal)
CPT/HCPCS: 99024

== ENCOUNTER → 2023-08-21 12:25 | Outpatient (BNVA) | payer BC, SELFPAY | PROVIDERS: PCP Internal Medicine; Visit Provider Physician Assistant ==

== ENCOUNTER 2023-08-23 08:57 | Emergency (ER) | payer BC, SELFPAY ==
[2023-08-23 09:03] VITALS: BP 138/76; PULSE 76; RESP 18; TEMP 36.9; O2SAT 98; BMI 32.3
--- NOTE | 2023-08-23 10:33 | ED_ITS ---
HPI - General Adult General Chief complaint: Wound/Laceration Stated complaint: wound check Time Seen by Provider: 08/23/23 09:21 Source: patient Mode of arrival: ambulatory Limitations: no limitations History of Present Illness HPI narrative: 38 yold male s/p right pinjy index finger abscess drainage presents to the ED for wound check evaluation. Patient presently is on a 2nd round of antibiotics of finger. Patient was seen recently this week by orthopedic hand surgeon. Patient states he came to the ED today because he had guaze on his finger last night. There was an opening in the wound and when he pulled the gauze out very hard there was profuse bleeding patient was concern to came to the ED to be evaluated. Patient states wound has not worsened. Patient denies any stiffness of the finger or inability to move. Patient states no fever or chills. Patient states no new redness or drainage. Patient states redness and drainage is chronic from beginning of finger abscess on 08/05 in his hand surgeon evaluating this Saturday and is aware of it for the place him another course of antibiotics. Patient states no fever or chills. Patient states no new redness, or any bluish black discoloration. Patient denies any red streaks. Related Data Previous Rx's ?Medication ?Instructions ?Recorded amoxicillin 875 mg-potassium 1 tab PO BID 7 days #14 tabs 08/21/23 clavulanate 125 mg tablet famotidine 20 mg tablet (Pepcid) 20 mg PO BID 5 days #10 tabs 08/23/23 prednisone 20 mg tablet 40 mg (2 x 20 mg) PO DAILY 5 days 08/23/23 #10 tabs Allergies Allergy/AdvReac Type Severity Reaction Status Date / Time No Known Allergies Allergy Verified 08/23/23 09:07 Review of Systems 2 Review of Systems: right pinky wound check Yes all other systems are reviewed and are negative PMFSH Social History Social History Comment: counts correct Patient Tobacco Use Status: Never used Tobacco Advance Directives: No Advance Directives Information Provided: No Current occupational status: employed 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 Physical Exam ED Vital Signs: Vital Signs - 24 hr 08/23/23 09:03 Temperature 98.4 F Pulse Rate 76 Respiratory Rate 18 Blood Pressure 138/76 Pulse Oximetry 98 Oxygen Delivery Method Room Air BMI result Body Mass Index 32.3 Const General: cooperative, healthy appearing, comfortable, no acute distress, well developed, alert, awake and Physically active Orientation/consciousness: oriented to person, oriented to place, oriented to time and patient oriented x3 HENNE Head: Yes normal to inspection, Yes No palpable skull fracture present, Yes normocephalic, Yes atraumatic and No abrasion Eyes General: appearance normal, both eyes and all related structures Neck Neck: Yes normal visual inspection, Yes full ROM, Yes no lymphadenopathy, Yes no meningeal signs, Yes trachea midline, Yes supple, No anterior neck swelling and No tender Chest Chest palpation & inspection: normal inspection of the chest and normal palpation of entire chest wall Resp Effort & Inspection: normal respiratory effort and able to speak in complete sentences Auscultation: clear to auscultation bilaterally Cardio Jugular venous distension: no JVD Heart sounds: S1 normal heart sound present and S2 normal heart sound present GI Inspection: Yes normal to inspection Palpation (GI): Soft to palpation, not firm and nontender General: Yes no CVA tenderness Back/Spine/Pelvis Back: no CVA tenderness and No back tenderness Skin General skin exam: no rashes or lesions noted, elasticity normal and turgor normal Neuro General: oriented to person, oriented to place, oriented to time, patient oriented x3, gait normal, tone normal, moves all extremities, Normal light touch and pain sensation, no meningeal signs, no focal motor deficits, CN's II-XI intact bilaterally and normal sensation to monofilament Extrem General: Yes normal to inspection, Yes full ROM and Yes capillary refill normal Hand/finger images: 2 1. Opening in wound. Negative for any drainage, pus discharge, foul odor, or tenderness. Positive for chronic erythema from 08/06/23. patient has complete flexion and extension of finger. Negative for signs of tenosynovitis. Capillary refills intact. Negative for red streaks. Rest of extremities normal. Negative for any bluish black discoloration. Negative for crepitus. Motor/neuro/ vascular exam intact. Psych Appearance: grossly normal, well kempt and not disheveled Medical Decision Making Medical Decision Making MDM Narrative: 38-year-old male healthy presents to ED for bleeding from status post right pinky abscess drainage wound. Patient had gauze on wound last night went to lower this morning there was lots of bleeding. Bleeding presently controlled. Patient has complete range of motion of finger. Presently no new redness or drainage since seeing orthopedic hand surgeon this week. No need for laceration repair. Patient informed to continue taking antibiotics. Patient is on amoxicillin and has allergic reaction to amoxicillin but hand surgeon informed him to continue taking amoxicillin due to benefits outweighing the risk. Patient has Benadryl at home will be given prednisone and Pepcid in case he has an allergic reaction to amoxicillin. No need for repeat imaging or x-ray. Patient explained worrisome signs and informed to return to the ED for has them. Differential Diagnosis Differential Diagnoses: The differential diagnosis associated with the presentation includes ( chronic wound, cellulitis,) Admission/Observation Consideration of admission/observation: Escalation of care including admission/observation considered Independent Historian Clinical information obtained from an independent historian. History obtained from or confirmed by: Other ( patient) External Record Review External record reviewed: Other ( prior visits) Prescription Management I considered prescription management with: Other ( prednisone and Pepcid) Discharge Plan Discharge Clinical Impression: Encounter for wound re-check Patient Disposition: Home, Self-Care Instructions: Wound Healing and Your Diet (ED), Abscess Follow-up (ED) Additional Instructions: recommend follow-up with hand surgeon. Return to the ED immediately for swelling, worsening redness, profuse pus discharge, foul odor, fever, chills, bleeding, stiffness of finger, inability to move finger, bluish black discoloration, or any other concerning symptoms. You will be discharged with prednisone and Pepcid to take if he ever allergic reaction to amoxicillin. Take these 2 meds with Benadryl you have a home if you having allergic reaction. Prescriptions: New prednisone 20 mg tablet 40 mg PO DAILY 5 Days Qty: 10 0RF famotidine [Pepcid] 20 mg tablet 20 mg PO BID 5 Days Qty: 10 0RF No Action amoxicillin-pot clavulanate 875-125 mg tablet 1 tab PO BID 7 Days Qty: 14 0RF Referrals: [facility] [place] Orthopedic Surgeons [Provider Group] ( Resolved bleeding from status post right pinky abscess drainage wound) Interventions: ED Discharge Assessment Last Done: 08/23/23 10:55 Discharge Date/Time: 08/23/23 10:56 Print Language: Chinese
[2023-08-23 10:55] VITALS: BP 138/76; PULSE 76; RESP 18; TEMP 36.9; O2SAT 97
== END 2023-08-23 10:56 | disposition home or self-care (01) ==
PROVIDERS: Emergency Provider Emergency Medicine; PCP Internal Medicine
DX: T81.31XA Disruption of external operation (surgical) wound, not elsewhere classified, initial encounter (principal)
CPT/HCPCS: 99282; 99283

== ENCOUNTER 2023-08-30 08:53 | Outpatient (AMB) | payer BC, SELFPAY ==
--- NOTE | 2023-08-30 08:59 | MHC.OFFVIS ---
Vital Signs 08/30/23 09:01 Height 5 ft 6 in Weight 200 lb BMI 32.3 Intake Visit Reasons: PO RT SF abscess 08/12/23 AR - Wound check Intake Note: Steffen is a 38 year old male, right hand dominant male who presents today for post-op wound check of right SF I&D, DOS 08/12/23. Patient reports --. Allergies amoxicillin Adverse Reaction (Verified 08/30/23 09:00) itchy HPI HPI PO RT SF abscess 08/12/23 AR - Wound check: Details: 38-year-old right hand dominant male who returns to the office today for post-op wound check s/p right small finger I&D, 08/12/[address] Silva. He is performing dry dressing changes as instructed. He is completed with his antibiotic regimen. He has no other concerns today. 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 Incision is clean, dry and intact. He has improved swelling on the distal end of the digit. Sensation is intact. Assessment & Plan Assessment & Plan (1) Abscess of right little finger: Code(s): L02.511 - Cutaneous abscess of right hand Category: Medical Plan He will continue with dry dressing changes if needed at work. He will leave the area exposed at air if not involved in activities. He will see me back in 1 week for a wound check, sooner if needed. Patient Instructions: Scribed for Evelyn Sheridan PA-C, by Aurelio Goyal healthcare or medical, on 08/30/2023 at 8:45 AM GERRY. Evelyn Pringle PA-C, have personally reviewed and agree with the information entered by the scribe. Coding Level of Care Code Global (54689) Diagnoses Abscess of right little finger L02.511
[2023-08-30 09:01] VITALS: BMI 32.3
== END 2023-08-30 09:19 | disposition home or self-care (01) ==
PROVIDERS: PCP Internal Medicine; Visit Provider Physician Assistant
DX: L02.511 Cutaneous abscess of right hand (principal)
CPT/HCPCS: 99213

== ENCOUNTER → 2023-08-30 08:53 | Outpatient (BNVA) | payer BC, SELFPAY | PROVIDERS: PCP Internal Medicine; Visit Provider Physician Assistant ==

== ENCOUNTER 2023-09-06 09:31 | Outpatient (AMB) | payer BC, SELFPAY ==
--- NOTE | 2023-09-06 09:48 | MHC.OFFVIS ---
Intake Visit Reasons: PO RT SF abscess 08/12/23 AR - Wound check Intake Note: Steffen is a 38 year old male, right hand dominant male who presents today for post-op wound check s/p right 5th digit I&D, DOS 08/12/23. Patient reports soreness in his 4th digit MCP that radiates into his finger as well as his 5th digit. He also has concerns of soreness in his forearm. States improvement in swelling. Allergies amoxicillin Adverse Reaction (Verified 09/06/23 09:50) itchy HPI HPI PO RT SF abscess 08/12/23 AR - Wound check: Details: 38-year-old right hand dominant male who returns to the office today for post-op wound check s/p right small finger I&D, 08/12/[address] Silva. He states he has improvement in his swelling however he continues to have soreness at his 4th MCP that radiates into his finger as well as 5th digit. He also c/o soreness in his forearm. He has no other concerns today. 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 There is some crusted serous drainage that has developed. I did debride this a bit with curette to obtain healthy bleeding tissue. He is able to fully flex and extend his digit. NVI. Assessment & Plan Assessment & Plan (1) Abscess of right little finger: Code(s): L02.511 - Cutaneous abscess of right hand Category: Medical Plan I performed wet to dry dressing; which he will continue over the weekend. I would like to see him back on Saturday morning for a wound check, sooner if needed. Patient Instructions: Scribed for Evelyn Sheridan PA-C, by Aurelio Goyal biomedical equipment technician, on 09/06/2023 at 9:30 AM EST.? I, Evelyn Sheridan PA-C, have personally reviewed and agree with the information entered by the scribe. Coding Level of Care Code Global (55296) Diagnoses Abscess of right little finger L02.511
== END 2023-09-06 11:03 | disposition home or self-care (01) ==
PROVIDERS: PCP Internal Medicine; Visit Provider Physician Assistant
DX: L02.511 Cutaneous abscess of right hand (principal)
CPT/HCPCS: 97597; 99213

== ENCOUNTER → 2023-09-06 09:31 | Outpatient (BNVA) | payer BC, SELFPAY | PROVIDERS: PCP Internal Medicine; Visit Provider Physician Assistant | DX: L02.511 Cutaneous abscess of right hand (principal) | CPT/HCPCS: 97597 ==

== ENCOUNTER 2023-09-09 09:27 | Outpatient (AMB) | payer BC, SELFPAY ==
--- NOTE | 2023-09-09 09:37 | MHC.OFFVIS ---
Vital Signs 09/09/23 09:39 Height 5 ft 6 in Weight 200 lb BMI 32.3 Handedness Right Intake Visit Reasons: PO - RT SF abscess 08/12/23 AR - Wound check Intake Note: Steffen is a 38 year old male, right hand dominant male who presents today for post-operative wound check s/p right 5th digit I&D, DOS 08/12/23. Patient reports he is doing well. He states that the area feels tender. Allergies amoxicillin Adverse Reaction (Verified 09/06/23 09:50) itchy HPI HPI PO - RT SF abscess 08/12/23 AR - Wound check: Details: 38-year-old right hand dominant male who returns to the office today for post-op wound check s/p right small finger I&D, 08/12/[address] Silva. He states he has tenderness at the incision site however he is doing well otherwise. He has no other concerns today. 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 No active drainage. He is able to fully flex and extend his digit. NVI. Assessment & Plan Assessment & Plan (1) Abscess of right little finger: Code(s): L02.511 - Cutaneous abscess of right hand Category: Medical Plan He will keep the area clean and dry. He will discontinue wet to dry dressing changes. He will see me back in a week for a follow-up wound check. Patient Instructions: Scribed for Evelyn Sheridan PA-C, by Aurelio Goyal ophthalmic medical technologist, on 09/09/2023 at 9:15 AM EST.? I, Evelyn Sheridan PA-C, have personally reviewed and agree with the information entered by the scribe. Coding Level of Care Code Global (23705) Diagnoses Abscess of right little finger L02.511
[2023-09-09 09:39] VITALS: BMI 32.3
== END 2023-09-09 09:49 | disposition home or self-care (01) ==
PROVIDERS: PCP Internal Medicine; Visit Provider Physician Assistant
DX: L02.511 Cutaneous abscess of right hand (principal)
CPT/HCPCS: 99213

== ENCOUNTER → 2023-09-09 09:27 | Outpatient (BNVA) | payer BC, SELFPAY | PROVIDERS: PCP Internal Medicine; Visit Provider Physician Assistant ==

== ENCOUNTER 2023-09-20 09:44 | Outpatient (AMB) | payer BC, SELFPAY ==
[2023-09-20 09:47] VITALS: BMI 32.3
--- NOTE | 2023-09-20 09:47 | MHC.OFFVIS ---
Vital Signs 09/20/23 09:47 Height 5 ft 6 in Weight 200 lb BMI 32.3 Intake Visit Reasons: PO-RT SF abscess 08/12/23 AR - Wound check Intake Note: Steffen is a 38 year old male, right hand dominant male who presents today for post-operative wound check s/p right 5th digit I&D, DOS 08/12/23. Patient reports he is doing well. He states that the area feels tender.that over the weekend the finger swelled significantly at the knuckle and there was a red dot that appeared, he thought that it was going to open similar to the other open areas but it did not. The wound continues to drain white/yellow pus .He has not been applying dressings Allergies amoxicillin Adverse Reaction (Verified 09/25/23 08:56) itchy HPI HPI PO-RT SF abscess 08/12/23 AR - Wound check: Details: 38-year-old right hand dominant male who returns to the office today for post-op right small finger I&D, 08/12/[address] Silva. He states he has tenderness as well as significant swelling and a red dot at the knuckle that appeared over the weekend. His wound continues to drain white and yellow pus. He has not been applying dressing changes as instructed. He has no other concerns today. 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 No active drainage. He is able to fully flex and extend his digit. NVI. Assessment & Plan Assessment & Plan (1) Abscess of right little finger: Code(s): L02.511 - Cutaneous abscess of right hand Category: Medical Plan I did restart his antibiotics as he continue to have serous drainage in his thumb. I would like to see him back in [address] Silva for a wound care follow-up, sooner if needed. Patient Instructions: Scribed for Evelyn Sheridan PA-C, by ralph Jorgensen scribe, on 09/20/2023 at 9:30 AM EST.? I, Evelyn Sheridan PA-C, have personally reviewed and agree with the information entered by the ray. Coding Level of Care Code Global (81581) Diagnoses Abscess of right little finger L02.511
== END 2023-09-20 10:27 | disposition home or self-care (01) ==
PROVIDERS: PCP Internal Medicine; Visit Provider Physician Assistant
DX: L02.511 Cutaneous abscess of right hand (principal)
CPT/HCPCS: 99213

== ENCOUNTER → 2023-09-20 09:44 | Outpatient (BNVA) | payer BC, SELFPAY | PROVIDERS: PCP Internal Medicine; Visit Provider Physician Assistant ==

== ENCOUNTER 2023-09-25 08:45 | Outpatient (AMB) | payer BC, SELFPAY ==
--- NOTE | 2023-09-25 08:54 | MHC.OFFVIS ---
Intake Visit Reasons: PO-RT SF abscess 08/12/23 AR - Wound check Intake Note: Steffen is a 38 year old male, right hand dominant male who presents today for post-operative wound check s/p right 5th digit I&D, DOS 08/12/23. Patient reports that he noticed a pimple like bump on his wound Saturday, states drainage that looked like bloody pus. He continues taking antibiotics as prescribed. Allergies amoxicillin Adverse Reaction (Verified 09/25/23 08:56) itchy HPI HPI PO-RT SF abscess 08/12/23 AR - Wound check: Details: 38-year-old right hand dominant male who returns to the office today for post-op right small finger I&D, 08/12/[address] Silva. He noticed a pimple like bump on his wound last Saturday which has a ?bloody pus? like drainage. He continues to take antibiotics as instructed. He has no other concerns today. 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 No active drainage. He is able to fully flex and extend his digit. NVI. Assessment & Plan Assessment & Plan (1) Abscess of right little finger: Code(s): L02.511 - Cutaneous abscess of right hand Category: Medical Plan Dr. Silva was present to see the patient with me today. We decided to refer her to dermatology for further evaluation as bacterial conditions have ruled out and he continues to have ongoing skin breakdown with vesicle formation on right finger. A prescription for topical cream was also placed to apply on the finger three times a day to see if this helps his symptoms while waiting for dermatology appointment. Orders: Referrals Dermatology Referral R23.8 - Other skin changes Medications: New mupirocin 2% 1 appl topical TID 15 grams 0RF 10 days Patient Instructions: Scribed for Evelyn Sheridan PA-C, by Aurelio Goyal medical logistics specialist, on 09/25/2023 at 8:45 AM EST.? I, Evelyn Sheridan PA-C, have personally reviewed and agree with the information entered by the scribe. Coding Level of Care Code Global (35345) Diagnoses Abscess of right little finger L02.511
== END 2023-09-25 09:21 | disposition home or self-care (01) ==
PROVIDERS: PCP Internal Medicine; Visit Provider Physician Assistant
DX: L02.511 Cutaneous abscess of right hand (principal)
CPT/HCPCS: 99213

== ENCOUNTER → 2023-09-25 08:45 | Outpatient (BNVA) | payer BC, SELFPAY | PROVIDERS: PCP Internal Medicine; Visit Provider Physician Assistant ==